=== PATIENT | female | born 1985 | race Caucasian/White ===

== ENCOUNTER 2023-08-10 22:44 | Emergency (ER) | payer MEDICAID, OTHER ==
[~2023-08-10] VITALS: Ht 172.7 cm; Wt 125.0 kg
[2023-08-11 00:16] VITALS: BP 116/71; PULSE 106; RESP 18; TEMP 99.1; O2SAT 96
== END 2023-08-11 02:25 | disposition home or self-care (01) ==
LOC: ER 22:44 → EDBD 22:44 → ER 08-11 02:25
DX: F10.129 Alcohol abuse with intoxication, unspecified (principal); E66.01 Morbid (severe) obesity due to excess calories; Z68.41 Body mass index [BMI] 40.0-44.9, adult; Y90.0 Blood alcohol level of less than 20 mg/100 ml

== ENCOUNTER 2024-10-30 02:13 | Inpatient (IN) | payer MEDICAID ==
[~2024-10-30] VITALS: Ht 167.6 cm; Wt 129.1 kg
--- NOTE | 2024-10-30 02:36 | ED.PDOC ---
HPI Comments HPI: 39-year-old female with multiple vague complaints brought in by ambulance from home for evaluation of nonspecific midsternal chest pressure nonradiating without any alleviating or precipitating factors. Onset of symptoms happened yesterday. Patient also when asked she stated that she has been having nausea and vomiting and diarrhea vomit is food content and diarrhea is yellow in color. Denies associated abdominal pain. Patient has been drinking alcohol the day prior. Patient states he feels dehydrated. Initial Vitals BP:153/103 HR: 96 RR: 20 O2: 99% Temp: Past Medical History: Anemia, anxiety, alcohol abuse Past Surgical History: Gastric bypass Social History: (+) ETOH, (-)smoking, and drug use. Medications: Zoloft, hydroxyzine HPI: Poor Historian. 39-year-old female with multiple vague complaints brought in by ambulance from home for evaluation of nonspecific midsternal chest pressure nonradiating without any alleviating or precipitating factors. Onset of symptoms happened yesterday. Patient also when asked she stated that she has been having nausea and vomiting and diarrhea vomit is food content and diarrhea is yellow in color. Denies associated abdominal pain. Patient has been drinking alcohol the day prior. Patient states he feels dehydrated. REVIEW OF SYSTEMS: CONSTITUTIONAL: Denies acute: fever, diaphoresis, chills, HEAD: Denies acute: headache, photophobia Eyes: Denies acute: Double vision, vision loss, eye pain, eye discharge. EARS: Denies acute: tinnitus, hearing loss, ear discharge, ear pain, THROAT: Denies acute: sore throat, swelling, difficulty swallowing , pain with swallowing, change in voice. NECK: Denies acute: neck pain, neck swelling, stiff neck. HEART: Denies acute : chest pain, palpitations, LUNGS: Denies acute: SOB, wheezing, cough, hemoptysis ABDOMEN: Denies acute: abdominal pain, melena , hematemesis, hematochezia SKIN: Denies acute: rash, redness, lesions, itchiness. EXTREMITIES: Denies acute: calf pain, numbness, tingling, weakness, denies pain in extremity. Denies acute: Low back pain. Neuro: Denies acute: focal neurological deficit, motor or sensory focal neurological deficit, tremors, seizure like activity, confusion, , change in mental status, loss of bowel or bladder function, cauda equina like symptoms. : Denies acute: dysuria, hematuria, flank pain, increase in urinary frequency. PSYCH: Denies acute: hallucination, suicidal ideation, homicidal ideation. FEMALE: Denies acute: abnormal vaginal bleeding, foul odor, unusual discharge. PHYSICAL EXAM: General: ----mild----acute distress, awake and alert. Head: normocephalic, atraumatic. Neck: supple, trachea is midline, no swelling. Throat: Normal phonation. Eyes:, no erythema, no purulent discharge, no proptosis, no icterus. Heart: regular rate, regular rhythm, no significant murmur appreciated. Lungs: no apparent respiratory distress, Able to speak in full sentences. No wheezing, no rhonchi, no crackles. No stridors Clear to auscultation bilaterally. Abdomen: non tender to palpation, non distended, soft, no guarding, no rebound, + bowel sounds. Neuro: Awake, Alert, oriented to name, self, situation, follows commands GCS=15. Speech is normal. Skin: no petechia, no purpura, no cyanosis, non-pale, not jaundice. Lower extremities: --no - Pitting edema no deformity, no focal swelling, no calf TTP. Makes eye contact. moves all four extremities. Face: no apparent facial droop. ED COURSE: DISCLAIMER: This medical document was created using an electronic medical record system with voice recognition software and computerized dictation system. Although this document has been carefully reviewed, there might still be some phonetic and typographical errors. Occasional wrong-word or "sound-alike" substitutions may have occurred due to the inherent limitations of voice recognition software. These areas are purely typographical due to imperfections of the software programs and do not reflect any compromise in the patient's medical care. Please read the chart carefully and recognize, using context, where these substitutions have occurred. 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, Allergies Allergies: Coded Allergies: NO KNOWN ALLERGIES (Unverified , 08/10/23) Home Meds Active Scripts Cephalexin Monohydrate (Cephalexin) 500 Mg Cap, 1 CAP PO TID for 5 Days, #15 CAP Prov:JIGNESH HEBERT MD 11/03/24 Reported Medications Sertraline Hcl (Sertraline Hcl) 100 Mg Tab, 1 TAB PO DAILY, #90 TAB 1 Refill 10/30/24 Hydroxyzine Hcl (Hydroxyzine Hcl) 50 Mg Tab, 50 MG PO for 30 Days, MG 10/30/24 Information Source: Patient Mode of Arrival: EMS Past Medical History PAST MEDICAL HISTORY: Anemia, Anxiety Surgical History (Other): Gastric bypass PICKING SUPERVISOR History: No Pertinent PICKING SUPERVISOR History Family History Family History: Reviewed,noncontributory to illness Social History Smoker: Non-Smoker Alcohol: Occasionally Drugs: Denies Drug Use Lives In: Home Was a procedure done? Was a procedure done?: No CP Differential Dx Differential Diagnosis: Angina, Anxiety / Panic Attack Differential Diagnosis: Angina, Chest Wall Pain, Costochondritis, Esophageal reflux/spasm, Gastritis, Myocardial Infarction, Pneumonia X-Ray, Labs, Meds, VS Vital Signs Date Time Temp Pulse Resp B/P (MAP) Pulse Ox O2 Delivery O2 Flow Rate FiO2 10/30/24 08:15 97 18 100 Room Air* 0 21 10/30/24 08:07 97.9 111 18 167/86 (113) 98 97.9 10/30/24 05:29 110 18 100 Room Air* 0 21 10/30/24 04:44 97.9 110 18 128/109 (115) 100 97.9 10/30/24 03:22 111 10/30/24 02:16 98 10/30/24 02:13 98.4 96 20 153/103 100 98.4 Lab Test 10/30/24 07:51 10/30/24 06:50 10/30/24 03:33 10/30/24 02:33 Range/Units Lactic Acid Level 1.6 2.8 *H 0.4-2.0 mmol/L Troponin I High Sensitivity 11 12 8 </=34 ng/L White Blood Count 8.7 4.4-10.8 10^3/uL Red Blood Count 5.59 H 4.0-5.20 10^6/uL Hemoglobin 11.5 L 12.2-16.2 g/dL Hematocrit 35.3 L 36.0-46.0 % Mean Corpuscular Volume 63.2 L 80.0-100.0 fL Mean Corpuscular Hemoglobin 20.6 L 28.0-32.0 pg Mean Corpuscular Hemoglobin Concent 32.5 32.0-36.0 g/dL Red Cell Distribution Width 31.1 H 11.8-14.3 % Platelet Count 147 140-450 10^3/uL Mean Platelet Volume 9.8 6.9-10.8 fL Neutrophils (%) (Auto) 81.6 H 37.0-80.0 % Lymphocytes (%) (Auto) 8.4 L 10.0-50.0 % Monocytes (%) (Auto) 9.4 0.0-12.0 % Eosinophils (%) (Auto) 0.1 0.0-7.0 % Basophils (%) (Auto) 0.5 0.0-2.0 % Neutrophils # (Auto) 7.1 1.6-8.6 10 ^3/uL Lymphocytes # (Auto) 0.7 0.4-5.4 10 ^3/uL Monocytes # (Auto) 0.8 0-1.3 10 ^3/uL Eosinophils # (Auto) 0 0-0.8 10 ^3/uL Basophils # (Auto) 0 0-0.2 10 ^3/uL Nucleated Red Blood Cells 0.3 % Platelet Estimate Adequate Hypochromasia (manual) Moderate Anisocytosis (manual) Moderate Microcytosis Moderate Stomatocytes Many Sodium Level 135 L 136-145 mmol/L Potassium Level 3.0 L 3.5-5.1 mmol/L Chloride Level 97 L 98-107 mmol/L Carbon Dioxide Level 23 20-31 mmol/L Anion Gap 15 5-15 Blood Urea Nitrogen 9 9-23 mg/dL Creatinine 0.62 0.550-1.02 mg/dL Glomerular Filtration Rate Calc 115 >90 mL/min BUN/Creatinine Ratio 14.5 10.0-20.0 Serum Glucose 134 H 74-106 mg/dL Calcium Level 7.9 L 8.7-10.4 mg/dL Magnesium Level 1.6 1.6-2.6 mg/dL Total Bilirubin 1.9 H 0.2-1.0 mg/dL Aspartate Amino Transferase (AST) 206 H 13-40 U/L Alanine Aminotransferase (ALT) 145 H 7-40 U/L Alkaline Phosphatase 210 H 46-116 U/L Total Protein 6.7 5.7-8.2 g/dL Albumin 3.6 3.2-4.8 g/dL Lipase 170 H 12-53 U/L Plasma/Serum Blood Alcohol < 3.0 <10 mg/dL Hepatitis A IgM Antibody Negative Hepatitis B Surface Antigen Negative Negative Hepatitis B Core IgM Antibody Negative Negative Hepatitis C Antibody Negative Negative [facility] [id number] [facility] [address] Ph: [phone] DIAGNOSTIC IMAGING Diagnostic Imaging Report : [id number] Signed PATIENT: DAVID OSMAN ACCT: [id number] UNIT: [id number] : 1985 LOC: ER ROOM / BED: / AGE / SEX: 39 / F ADM STATUS: REG ER SERVICE 2 ORDERING PHYSICIAN: GISELA RODRIGUEZ DO PROCEDURE(s): CXRP - CHEST PORTABLE REASON: cp ORDER NUMBER(s): [id number], ACCESSION NUMBER(s): [id number] CHEST RADIOGRAPH Indication: cp Technique: Single frontal view of the chest was obtained COMPARISON: None FINDINGS: Lines and Tubes: None Lungs: Clear Pleura: No effusion. No pneumothorax. Cardiomediastinal contours: Unremarkable Bones: Unremarkable IMPRESSION: 1. No acute disease. ATED BY: BASIL SANDHU MD DICTATED DATE/TIME: 10/30/24317 SIGNED BY: BASIL SANDHU MD SIGNED DATE/TIME: 10/30/24317 CC: Time of 1ST Reevaluation: 02:32 Reevaluation 1ST: Unchanged Patient Education/Counseling: Diagnosis, Treatment Family Education/Counseling: No Family Present Comments MDM: patient presented with the above HPI.---multiple vague complaints GI symptoms---workup was initiated. patient was found with the above mentioned diagnosis. the following medications were ordered: please refer to order lists of meds and tests obtained by myself Dr. Rodriguez. Patient ED course and VS have been stabilized. Patient has been reassessed in the ED and remained in a stable condition. Pertinent incidental findings were discussed with the patient and/or family. Patient/family voices understanding and is agreeable with plan. Patient has been observed in the ED adequate length of time to insure improvement/stability. Escalation of care considered: Consideration of escalation to observation or admission Patient was ADMITTED to the medicine team for further evaluation and treatment of their presentation. All the reports of any imaging studies that were ordered by myself were reviewed by myself. SEPSIS Sepsis Screen Physician Orders Electrocardigram (10/30/24 05:20) Fabrication And Layout Craftsman (10/30/24 ) Chest Portable (10/30/24 02:23) LIVER (10/30/24 07:59) Allergies (10/30/24 07:59) Ondansetron Hcl (Zofran) (10/30/24 08:00) Docusate Sodium Capsule (Colace Capsule) (10/30/24 08:00) Enoxaparin Sodium (Lovenox) (10/30/24 10:00) Condition: Fair (10/30/24 07:59) BRP (10/30/24 07:59) Morphine Sulfate Injection (10/30/24 08:00) Sequential Compression Device (10/30/24 ) Etoh Withdrawal Assessment (10/30/24 07:59) Vital Signs Date Time Temp Pulse Resp B/P (MAP) Pulse Ox O2 Delivery O2 Flow Rate FiO2 10/30/24 08:15 97 18 100 Room Air* 0 21 10/30/24 08:07 97.9 111 18 167/86 (113) 98 97.9 10/30/24 05:29 110 18 100 Room Air* 0 21 10/30/24 04:44 97.9 110 18 128/109 (115) 100 97.9 10/30/24 03:22 111 10/30/24 02:16 98 10/30/24 02:13 98.4 96 20 153/103 100 98.4 Laboratory Tests Test 10/30/24 02:33 10/30/24 07:51 Lactic Acid Level 2.8 mmol/L (0.4-2.0) *H 1.6 mmol/L (0.4-2.0) White Blood Count 8.7 10^3/uL (4.4-10.8) Departure 1 Departure Time of Disposition: 03:27 Impression: Primary Impression: Tachycardia Additional Impressions: Alcohol abuse Chest pain Nausea vomiting and diarrhea Hypokalemia Elevated LFTs Elevated lipase Disposition: ADMITTED INPATIENT Admit to: Tele Condition: Guarded e-Prescriptions Cephalexin Monohydrate (Cephalexin) 500 Mg Cap 1 CAP PO TID for 5 Days, #15 CAP Prov: JIGNESH HEBERT MD 11/03/24 Discharged With: Self Critical Care Note Critical Care Time?: Yes (45 min-critical care time only) Stability Stability form required: No Heart Score Heart Score: Heart Score Response (Comments) Value History Slightly Suspicious 0 EKG Normal 0 Age <45 0 Risk Factors No known risk factors 0 Troponin Normal limit 0 Total 0 I personally scribed for GISELA RODRIGUEZ DO ([email or web address]) on 10/30/24 at 02:36. Electronically submitted by Reza Rodas ([email or web address]). I personally scribed for GISELA RODRIGUEZ DO ([email or web address]) on 10/30/24 at 03:09. Electronically submitted by Reza Rodas ([email or web address]). I personally scribed for GISELA RODRIGUEZ DO ([email or web address]) on 10/30/24 at 04:34. Electronically submitted by Reza Rodas ([email or web address]). I personally scribed for GISELA RODRIGUEZ DO ([email or web address]) on 10/30/24 at 05:18. Electronically submitted by Reza Rodas ([email or web address]). GISELA RODRIGUEZ DO Oct 30, 2024 02:36
--- NOTE | 2024-10-30 03:06 | ECG ---
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
[2024-10-30 03:09] LABS: Hemoglobin 11.5 g/dL (12.2-16.2)
[2024-10-30 03:10] LABS: Hematocrit 35.3 % (36.0-46.0); Mean Corpuscular Hemoglobin 20.6 pg (28.0-32.0); Mean Corpuscular Volume 63.2 fL (80.0-100.0); Nucleated Red Blood Cells % 0.3 %
--- NOTE | 2024-10-30 03:20 | DVH ---
CHEST RADIOGRAPH Indication: cp Technique: Single frontal view of the chest was obtained COMPARISON: None FINDINGS: Lines and Tubes: None Lungs: Clear Pleura: No effusion. No pneumothorax. Cardiomediastinal contours: Unremarkable Bones: Unremarkable IMPRESSION: 1. No acute disease.
[2024-10-30 03:25] LABS: Albumin 3.6 g/dL (3.2-4.8); Anion Gap 15 (5-15); BUN/Creatinine Ratio 14.5 (10.0-20.0); Blood Urea Nitrogen 9 mg/dL (9-23); Carbon Dioxide 23 mmol/L (20-31); Total Protein 6.7 g/dL (5.7-8.2)
[2024-10-30 03:33] LABS: Alanine Aminotransferase 145 U/L (7-40); Alkaline Phosphatase 210 U/L (46-116); Bilirubin, Total 1.9 mg/dL (0.2-1.0); Calcium 7.9 mg/dL (8.7-10.4); Chloride 97 mmol/L (98-107); Glucose 134 mg/dL (74-106); Magnesium 1.6 mg/dL (1.6-2.6); Potassium 3.0 mmol/L (3.5-5.1); Sodium 135 mmol/L (136-145)
[2024-10-30 03:44] LABS: Lipase 170 U/L (12-53)
--- NOTE | 2024-10-30 03:46 | ECG ---
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
[2024-10-30 03:48] LABS: Lactic Acid w/Reflex 2.8 mmol/L (0.4-2.0)
[2024-10-30] MEDS: SODIUM CHLORIDE 0.9% 1,000 ML IV ONE (04:09)
[2024-10-30] MEDS: POTASSIUM CHL 20 Meq TABLET PO ONE (04:09)
[2024-10-30] MEDS: ONDANSETRON HCL 4 MG/2 ML VIAL IV ONE (04:09)
[2024-10-30 04:58] LABS: Anisocytosis Moderate
[2024-10-30 04:59] LABS: Stomatocytes Many
[2024-10-30 05:29] VITALS: PULSE 110; RESP 18; O2SAT 100
--- NOTE | 2024-10-30 07:59 | DVHHP2 ---
History of Present Illness Reason for Visit: chest pain nvd History of Present Illness 39-year-old female past medical history anemia anxiety alcohol abuse last drink was two days ago gastritis gastric bypass surgery chief complaint patient states that she could not breathe comes in with shortness of the breath by paramedics she states she has been dealing with this for the last two days she said two days before she had drink large amount of alcohol she also admits to falling two days prior and injury to her left outer thigh she had showed provider she has a bruising to her leg she also complains of vomiting for two days straight not able to keep anything down she denies any blood in her vomiting she denies any black stool she did state she had some diarrhea she states she is not able to eat she denies any tearing sensation in her chest abdomen when evaluating patient's labs and imaging from ED potassium was low at 3. 0 so potassium was repleted Zofran normal saline was given CBC was unremarkable sodium was 135 lactate was 2.8 glucose was 134 total bili was 1.9 AST was 206 ALT was 145 alkaline phosphatase 210 lipase was elevated at 170 troponin x3 was negative chest x-ray was unremarkable alcohol level was negative with these findings we will admit patient for further workup and care Past Medical History See HPI above Past Surgical History See HPI above Family History Reviewed, non-contributory to the management of this case. Past Social History Patient does drink last drink was two days ago denies drug or smoking Review of Systems Constitutional: No: Fever, Chills, Sweats, Weakness, Malaise, Other Eyes: No: Pain, Vision change, Conjunctivae inflammation, Eyelid inflammation, Other, Redness ENT: No: Ear pain, Ear discharge, Nose pain, Nose discharge, Nose congestion, Mouth pain, Mouth swelling, Throat pain, Throat swelling, Other Respiratory: No: Cough, Dry, Shortness of breath, SOB with excertion, Wheezing, Hemoptysis, Pleuritic Pain, Sputum, Wheezing, Other Cardiovascular: Chest Pain; No: Palpitations, Orthopnea, Paroxysmal Noc. Dyspnea, Edema, Lt Headedness, Other Gastrointestinal: No: Nausea, Vomiting, Abdominal Pain, Diarrhea, Constipation, Melena, Hematochezia, Other Genitourinary: No Dysuria, No Frequency, No Incontinence, No Hematuria, No Retention, No Other Musculoskeletal: No: other, neck pain, shoulder pain, arm pain, back pain, hand pain, leg pain, foot pain Skin: No: Rash, Lesions, Jaundice, Bruising, Other Neurological: Other (mild tremors); No: Weakness, Numbness, Incoordination, Change in speech, Confusion, Seizures Allergies: Coded Allergies: NO KNOWN ALLERGIES (Unverified , 08/10/23) Exam Vital Signs Vital Signs Date Time Temp Pulse Resp B/P (MAP) Pulse Ox O2 Delivery O2 Flow Rate FiO2 10/30/24 05:29 110 18 100 Room Air* 0 21 10/30/24 04:44 97.9 128/109 (115) 97.9 General Appearance: Oriented X3, No acute distress HEENT: Atraumatic, PERRLA, EOMI, Mucous membr. moist/pink Respiratory: Clear to auscultation, Normal air movement Cardiovascular: Regular rate, Normal S1, Normal S2, No murmurs Abdominal: Normal bowel sounds, Soft, No tenderness, No hepatospenomegaly, No masses Extremities: No cyanosis, No edema, Normal pulses, Other (left upper medial thigh ) Skin: No rashes, No breakdown, No significant lesion Neuro: Normal speech, Normal tone, Sensation intact, Other (neuro mild tremors/left outer thigh with bruising compartments soft neurovascular intact) Labs/Xrays Chest x-ray unremarkable I reviewed labs, imaging CT scan abdomen pelvis, EKG and all diagnostic studies on this patient from ED records and the medical chart Labs Test 10/30/24 06:50 10/30/24 02:33 Range/Units Troponin I High Sensitivity 11 </=34 ng/L White Blood Count 8.7 4.4-10.8 10^3/uL Red Blood Count 5.59 H 4.0-5.20 10^6/uL Hemoglobin 11.5 L 12.2-16.2 g/dL Hematocrit 35.3 L 36.0-46.0 % Mean Corpuscular Volume 63.2 L 80.0-100.0 fL Mean Corpuscular Hemoglobin 20.6 L 28.0-32.0 pg Mean Corpuscular Hemoglobin Concent 32.5 32.0-36.0 g/dL Red Cell Distribution Width 31.1 H 11.8-14.3 % Platelet Count 147 140-450 10^3/uL Mean Platelet Volume 9.8 6.9-10.8 fL Neutrophils (%) (Auto) 81.6 H 37.0-80.0 % Lymphocytes (%) (Auto) 8.4 L 10.0-50.0 % Monocytes (%) (Auto) 9.4 0.0-12.0 % Eosinophils (%) (Auto) 0.1 0.0-7.0 % Basophils (%) (Auto) 0.5 0.0-2.0 % Neutrophils # (Auto) 7.1 1.6-8.6 10 ^3/uL Lymphocytes # (Auto) 0.7 0.4-5.4 10 ^3/uL Monocytes # (Auto) 0.8 0-1.3 10 ^3/uL Eosinophils # (Auto) 0 0-0.8 10 ^3/uL Basophils # (Auto) 0 0-0.2 10 ^3/uL Nucleated Red Blood Cells 0.3 % Platelet Estimate Adequate Hypochromasia (manual) Moderate Anisocytosis (manual) Moderate Microcytosis Moderate Stomatocytes Many Sodium Level 135 L 136-145 mmol/L Potassium Level 3.0 L 3.5-5.1 mmol/L Chloride Level 97 L 98-107 mmol/L Carbon Dioxide Level 23 20-31 mmol/L Anion Gap 15 5-15 Blood Urea Nitrogen 9 9-23 mg/dL Creatinine 0.62 0.550-1.02 mg/dL Glomerular Filtration Rate Calc 115 >90 mL/min BUN/Creatinine Ratio 14.5 10.0-20.0 Serum Glucose 134 H 74-106 mg/dL Lactic Acid Level 2.8 *H 0.4-2.0 mmol/L Calcium Level 7.9 L 8.7-10.4 mg/dL Magnesium Level 1.6 1.6-2.6 mg/dL Total Bilirubin 1.9 H 0.2-1.0 mg/dL Aspartate Amino Transferase (AST) 206 H 13-40 U/L Alanine Aminotransferase (ALT) 145 H 7-40 U/L Alkaline Phosphatase 210 H 46-116 U/L Total Protein 6.7 5.7-8.2 g/dL Albumin 3.6 3.2-4.8 g/dL Lipase 170 H 12-53 U/L Plasma/Serum Blood Alcohol < 3.0 <10 mg/dL SEPSIS Sepsis Screen Date sepsis recognized/suspect: Oct 30, 2024 Time Sepsis recognized/suspect: 0213 Recent Procedure: No On Antibiotic Therapy: No Respiratory Rate >20: No Heart Rate >90: No Temp<36 C (96.8 F) or >38.3 C: No SBP <90 or MAP <65 mmHG: No New Acute Mental Status Change: No Is the patient on CPAP, BIPAP,: No Physician Orders Electrocardigram (10/30/24 05:20) Central Supply Technician Supervisor (10/30/24 ) Drug Screen (10/30/24 02:23) Chest Portable (10/30/24 02:23) Vital Signs Date Time Temp Pulse Resp B/P (MAP) Pulse Ox O2 Delivery O2 Flow Rate FiO2 10/30/24 05:29 110 18 100 Room Air* 0 21 10/30/24 04:44 97.9 110 18 128/109 (115) 100 97.9 10/30/24 03:22 111 10/30/24 02:16 98 10/30/24 02:13 98.4 96 20 153/103 100 98.4 Laboratory Tests Test 10/30/24 02:33 Lactic Acid Level 2.8 mmol/L (0.4-2.0) *H White Blood Count 8.7 10^3/uL (4.4-10.8) Medications Medications Dose Ordered Sig/Anna Route Start Time Stop Time Status Last Admin Dose Admin Ondansetron HCl 8 mg ONCE ONCE IV 10/30/24 02:45 10/30/24 02:46 DC 10/30/24 04:09 8 MG Potassium Chloride 60 meq ONCE ONCE PO 10/30/24 03:45 10/30/24 03:46 DC 10/30/24 04:09 60 MEQ Sodium Chloride 1,000 ml @ 1,000 mls/hr Q1H ONCE IV 10/30/24 02:45 10/30/24 03:44 DC 10/30/24 04:09 1,000 MLS/HR Assessment/Plan Assessment/Plan acute pancreatitis lipase [address] scan abd pelvis fu results IV fluids N.p.o. Ordered morphine as needed for pain consider GI consult follow-up recs ordered US of abdomen ordered lipase for am ordered triglycerides acute chest pain trop negative x3 ekg no stemi ddimer negative acute lactic acidosis could be from dehydration with nvd ordered ivf for now fu lactic in am acute nvd ordered stool cdiff ordered zofran acute hypokalemia repleted k ordered mag and phos fu results acute elevation in t bili and transaminitis likely from etoh abuse us ordered ordered hepaitis panel avoid liver toxic drugs etoh level negative Acute left upper thigh bruising Order x-ray of femur follow up results Fall precautions acute on chronic etoh use etoh level negative enc abstience sw for resources fen/ppx npo ivf protonix scd dispo admit to medicine Plan discussed with: Patient Date of Service: Oct 30, 2024 Billing Provider: JOVITA PANTOJA DNP Common Visit Codes: [id number] INP/OBS CARE (HIGH) JOVITA PANTOJA DNP Oct 30, 2024 07:59
[2024-10-30] MEDS ORDERED: DOCUSATE SOD 100 MG CAP PO PRN (08:00)
[2024-10-30 08:15] VITALS: PULSE 97; RESP 18; O2SAT 100
--- NOTE | 2024-10-30 09:06 | DVH ---
INDICATION: eval for acute transaminitis and tbili TECHNIQUE: Multiple real-time sonographic images were obtained of the right upper quadrant. COMPARISON: None FINDINGS: The liver demonstrates increased echotexture without focal mass lesions. The liver measure s 21.3 cm. There is no intrahepatic or extrahepatic ductal dilatation. The common duct measures 0.4 cm. Post cholecystectomy The right kidney measures 11.7 cm. The right kidney is normal in contour, size, and shape. The echoge nicity is normal. There is no hydronephrosis. The pancreas is not well visualized due to overlying bowel gas. IMPRESSION: Hepatic steatosis and hepatomegaly.
[2024-10-30 09:32] LABS: Potassium 3.7 mmol/L (3.5-5.1)
[2024-10-30 09:38] LABS: Magnesium 1.7 mg/dL (1.6-2.6); Triglycerides 119.0 mg/dL (< 150)
[2024-10-30] MEDS ORDERED: NITROGLYCERIN 0.4 MG SL TAB SL PRN (09:45)
[2024-10-30 10:32] LABS: Lipase 178.0 U/L (12-53)
[2024-10-30 10:48] LABS: Triglycerides 95.0 mg/dL (< 150)
[2024-10-30 10:49] LABS: Magnesium 1.8 mg/dL (1.6-2.6)
[2024-10-30 10:52] LABS: Potassium 3.5 mmol/L (3.5-5.1)
[2024-10-30 11:06] LABS: Hepatitis B Surface Antigen Negative (Negative); Hepatitis C Antibody Negative (Negative)
[2024-10-30 11:08] LABS: Lipase 178.0 U/L (12-53)
[2024-10-30] MEDS: SODIUM CHLORIDE 0.9% 1,000 ML IV SCH (12:47)
[2024-10-30] MEDS: ONDANSETRON HCL 4 MG/2 ML VIAL IV PRN (12:49)
[2024-10-30] MEDS: ENOXAPARIN SOD 40 MG/0.4 ML SYRINGE SC SCH (12:49)
--- NOTE | 2024-10-30 16:46 | DVH ---
EXAM: XY L FEMUR XRAY INDICATION: 39 years old, Female; eval for fx. TECHNIQUE: 2 views of the left femur COMPARISON: None FINDINGS/IMPRESSION: No radiographic evidence of an acute osseous abnormality. There is no acute fracture, osseous malalig nment, or aggressive focal osseous lesion. There is no radiographically apparent joint space narrowin ortiz
[2024-10-30 17:53] VITALS: BP 152/99; PULSE 83; RESP 20; TEMP 98.1; O2SAT 96
[2024-10-30] MEDS ORDERED: SERT-160 PO (19:02)
[2024-10-30] MEDS ORDERED: HYDR50TA69 PO (19:02)
[2024-10-30 20:00] VITALS: PULSE 78; PULSE 82; RESP 17; O2SAT 100
[2024-10-30 21:00] VITALS: BP 136/95; PULSE 78; RESP 17; TEMP 97.1; O2SAT 100
[2024-10-30] MEDS: MORPHINE SULFATE INJ 2 MG/ml SYRG IV PRN (23:24)
[2024-10-31] VITALS (9 sets, daily range): BP systolic 127–147; BP diastolic 90–103; PULSE 78–108; RESP 17–19; TEMP 97.1–98.6; O2SAT 94–100
[2024-10-31 08:21] LABS: Albumin 3.4 g/dL (3.2-4.8); Anion Gap 13 (5-15); BUN/Creatinine Ratio 14.3 (10.0-20.0); Bilirubin, Total 0.8 mg/dL (0.2-1.0); Carbon Dioxide 22 mmol/L (20-31); Glucose 91 mg/dL (74-106); Sodium 142 mmol/L (136-145); Total Protein 6.1 g/dL (5.7-8.2)
[2024-10-31 08:22] LABS: Nucleated Red Blood Cells % 0.2 %
[2024-10-31 08:23] LABS: Hematocrit 33.6 % (36.0-46.0); Hemoglobin 10.6 g/dL (12.2-16.2); Mean Corpuscular Hemoglobin 20.7 pg (28.0-32.0); Mean Corpuscular Volume 65.9 fL (80.0-100.0)
[2024-10-31 08:28] LABS: Alanine Aminotransferase 98 U/L (7-40); Alkaline Phosphatase 167 U/L (46-116); Blood Urea Nitrogen 9 mg/dL (9-23); Calcium 7.9 mg/dL (8.7-10.4); Chloride 107 mmol/L (98-107); Potassium 3.3 mmol/L (3.5-5.1)
[2024-10-31 08:58] LABS: Anisocytosis Moderate
[2024-10-31 08:59] LABS: Stomatocytes Few
[2024-10-31] MEDS: SERTRALINE HCL 50 MG TAB PO ONE (15:00)
[2024-10-31] MEDS: PANTOPRAZOLE 40 MG TAB PO ONE (16:00)
--- NOTE | 2024-10-31 18:05 | DVHPN2 ---
Subjective Patient is here for substernal chest pain also has acute alcoholic intoxication. Patient has stated that she had three mixed drinks. Changes from previous H/P or p: No Changes Eyes: No Pain, No Vision change, No Conjunctivae inflammation, No Eyelid inflammation, No Other, No Redness ENT: No Ear pain, No Ear discharge, No Nose pain, No Nose discharge, No Nose congestion, No Mouth pain, No Mouth swelling, No Throat pain, No Throat swelling, No Other Cardiovascular: Chest Pain; No Palpitations, No Orthopnea, No Paroxysmal Noc. Dyspnea, No Edema, No Lt Headedness, No Other Respiratory: No Cough, No Dry, No Shortness of breath, No SOB with excertion, No Wheezing, No Hemoptysis, No Pleuritic Pain, No Sputum, No Other Gastrointestinal: No Nausea, No Vomiting, No Abdominal Pain, No Diarrhea, No Constipation, No Melena, No Hematochezia, No Other Genitourinary: No Dysuria, No Frequency, No Incontinence, No Hematuria, No Retention, No Other Musculoskeletal: No other, No neck pain, No shoulder pain, No arm pain, No back pain, No hand pain, No leg pain, No foot pain Skin: No Rash, No Lesions, No Jaundice, No Bruising, No Other Objective Vitals Vital Signs Date Time Temp Pulse Resp B/P (MAP) Pulse Ox O2 Delivery O2 Flow Rate FiO2 10/31/24 16:50 98.1 88 19 140/97 (111) 100 98.1 10/31/24 08:00 Room Air* 0 21 Intake/Output Intake and Output 10/31/24 07:00 Intake Total 400 ml Balance 400 ml Intake Oral 0 ml IV Total 400 ml # Voids 5 # Bowel Movements 3 Medications Current Medications Medications Dose Ordered Sig/Anna Route Start Time Stop Time Status Last Admin Dose Admin Sodium Chloride 1,000 ml @ 100 mls/hr Q10H IV 10/30/24 08:00 10/31/24 09:25 100 MLS/HR Ondansetron HCl 4 mg Q4HP PRN IV 10/30/24 08:00 10/31/24 09:13 4 MG Docusate Sodium 100 mg BIDPRN PRN PO 10/30/24 08:00 Enoxaparin Sodium 40 mg DAILY SC 10/30/24 10:00 10/30/24 12:49 40 MG Morphine Sulfate 2 mg Q4HPRN PRN IV 10/30/24 08:00 10/31/24 09:15 2 MG Nitroglycerin 0.4 mg Q5MINP PRN SL 10/30/24 09:45 Sertraline HCl 100 mg DAILY PO 11/01/24 10:00 Laboratory Results Laboratory Tests 10/31/24 07:54 Chemistry Test 10/31/24 07:54 Albumin 3.4 g/dL (3.2-4.8) Calcium Level 7.9 mg/dL (8.7-10.4) L Total Protein 6.1 g/dL (5.7-8.2) LFT Test 10/31/24 07:54 Alanine Aminotransferase (ALT) 98 U/L (7-40) H Alkaline Phosphatase 167 U/L (46-116) H Aspartate Amino Transferase (AST) 106 U/L (13-40) H Total Bilirubin 0.8 mg/dL (0.2-1.0) Assessment/Plan Assessment/Plan 69-year-old female with a known history of morbid obesity classIII, presented to the hospital with a nausea and vomiting abdominal pain and diarrhea found to have 1. Intractable nausea and vomiting with the abdominal pain suspect acute pancreatitis 2. Substernal chest pain likely nonspecific, no evidence of acute [place] 3. Diarrhea rule out C diff 4. Acute alcoholic intoxication, watch for alcohol withdrawal syndrome 5. Morbid obesity classIII 6. Lactic acidosis 7. Transaminitis with a hepatic steatosis 8. Left lateral thigh bruising -watch for alcohol withdrawal syndrome, check stool for C diff, IV hydration Plan discussed with: Patient My Orders Orders - JIGENSH HEBERT MD Procedure Category Date Status Time Sertraline Hcl PHA 11/01/24 In Process (Zoloft) 10:00 Hydroxyzine Oral PHA 10/31/24 In Process (Vistaril Oral) 22:00 Regular Diet DIET 10/31/24 Transmitted Dinner Date of Service: Oct 31, 2024 Billing Provider: JIGNESH HEBERT MD Common Visit Codes: [id number] INP/OBS CARE(MOD) JIGNESH HEBERT MD Oct 31, 2024 18:05
[2024-10-31] MEDS: hydrOXYzine 25 MG TAB or CAP PO ONE ×2 (18:31→21:27)
[2024-11-01] VITALS (8 sets, daily range): BP systolic 127–156; BP diastolic 54–103; PULSE 78–112; RESP 16–22; TEMP 98–98.6; O2SAT 94–100
[2024-11-01] MEDS: SERTRALINE HCL 50 MG TAB PO SCH (08:52)
--- NOTE | 2024-11-01 18:18 | DVHPN2 ---
Subjective Patient is here for substernal chest pain also has acute alcoholic intoxication. Patient has stated that she had three mixed drinks. Changes from previous H/P or p: No Changes Eyes: No Pain, No Vision change, No Conjunctivae inflammation, No Eyelid inflammation, No Other, No Redness ENT: No Ear pain, No Ear discharge, No Nose pain, No Nose discharge, No Nose congestion, No Mouth pain, No Mouth swelling, No Throat pain, No Throat swelling, No Other Cardiovascular: Chest Pain; No Palpitations, No Orthopnea, No Paroxysmal Noc. Dyspnea, No Edema, No Lt Headedness, No Other Respiratory: No Cough, No Dry, No Shortness of breath, No SOB with excertion, No Wheezing, No Hemoptysis, No Pleuritic Pain, No Sputum, No Other Gastrointestinal: No Nausea, No Vomiting, No Abdominal Pain, No Diarrhea, No Constipation, No Melena, No Hematochezia, No Other Genitourinary: No Dysuria, No Frequency, No Incontinence, No Hematuria, No Retention, No Other Musculoskeletal: No other, No neck pain, No shoulder pain, No arm pain, No back pain, No hand pain, No leg pain, No foot pain Skin: No Rash, No Lesions, No Jaundice, No Bruising, No Other Objective Vitals Vital Signs Date Time Temp Pulse Resp B/P (MAP) Pulse Ox O2 Delivery O2 Flow Rate FiO2 11/01/24 17:21 98.1 111 22 156/85 (108) 96 98.1 11/01/24 08:00 Room Air* 0 21 Intake/Output Intake and Output 11/01/24 07:00 Intake Total 3040 ml Balance 3040 ml Intake Oral 1040 ml IV Total 2000 ml # Voids 7 # Bowel Movements 1 Medications Current Medications Medications Dose Ordered Sig/Anna Route Start Time Stop Time Status Last Admin Dose Admin Sodium Chloride 1,000 ml @ 100 mls/hr Q10H IV 10/30/24 08:00 11/01/24 05:53 100 MLS/HR Ondansetron HCl 4 mg Q4HP PRN IV 10/30/24 08:00 10/31/24 09:13 4 MG Docusate Sodium 100 mg BIDPRN PRN PO 10/30/24 08:00 Enoxaparin Sodium 40 mg DAILY SC 10/30/24 10:00 10/30/24 12:49 40 MG Morphine Sulfate 2 mg Q4HPRN PRN IV 10/30/24 08:00 11/01/24 14:39 2 MG Nitroglycerin 0.4 mg Q5MINP PRN SL 10/30/24 09:45 Sertraline HCl 100 mg DAILY PO 11/01/24 10:00 11/01/24 08:52 100 MG Laboratory Results Laboratory Tests 10/31/24 07:54 Assessment/Plan Assessment/Plan 69-year-old female with a known history of morbid obesity classIII, presented to the hospital with a nausea and vomiting abdominal pain and diarrhea found to have 1. Intractable nausea and vomiting with the abdominal pain suspect acute pancreatitis 2. Substernal chest pain likely nonspecific, no evidence of acute [place] 3. Diarrhea rule out C diff 4. Acute alcoholic intoxication, watch for alcohol withdrawal syndrome 5. Morbid obesity classIII 6. Lactic acidosis 7. Transaminitis with a hepatic steatosis 8. Left lateral thigh bruising -watch for alcohol withdrawal syndrome, check stool for C diff, IV hydration Plan discussed with: Patient My Orders Orders - JIGNESH HEBERT MD Procedure Category Date Status Time Urine Bacterial FELY 11/01/24 Uncollected Culture 16:07 Urinalysis LAB 11/01/24 Uncollected 16:07 Pt Request For Service PT 11/01/24 Logged 16:09 Date of Service: Nov 01, 2024 Billing Provider: JIGNESH HEBERT MD Common Visit Codes: [id number] INP/OBS CARE(MOD) JIGNESH HEBERT MD Nov 01, 2024 18:18
[2024-11-01 21:20] LABS: Benzodiazephine Screen, Urine Neg (NEGATIVE)
[2024-11-01 21:47] LABS: Barbiturate Scree,Urine Neg (NEGATIVE); Opiate Scree,Urine Pos (NEGATIVE); Phencyclidine Screen, Urine Neg (NEGATIVE)
[2024-11-01 21:48] LABS: Amphetamine Screen, Urine Neg (NEGATIVE); Cannabinoid Screen, Urine Neg (NEGATIVE); Cocaine Screen, Urine Neg (NEGATIVE)
[2024-11-02] VITALS (7 sets, daily range): BP systolic 137–148; BP diastolic 88–99; PULSE 77–95; RESP 18–20; TEMP 97.8–98.6; O2SAT 94–99
[2024-11-02 08:39] LABS: Urine Protein, UAD TRACE (Negative)
[2024-11-02 11:10] LABS: Hepatitis B Surface Antigen Negative (Negative); Hepatitis C Antibody Negative (Negative)
--- NOTE | 2024-11-02 16:43 | DVHPN2 ---
Subjective Patient is here for substernal chest pain also has acute alcoholic intoxication. Patient has stated that she had three mixed drinks. Changes from previous H/P or p: No Changes Eyes: No Pain, No Vision change, No Conjunctivae inflammation, No Eyelid inflammation, No Other, No Redness ENT: No Ear pain, No Ear discharge, No Nose pain, No Nose discharge, No Nose congestion, No Mouth pain, No Mouth swelling, No Throat pain, No Throat swelling, No Other Cardiovascular: Chest Pain; No Palpitations, No Orthopnea, No Paroxysmal Noc. Dyspnea, No Edema, No Lt Headedness, No Other Respiratory: No Cough, No Dry, No Shortness of breath, No SOB with excertion, No Wheezing, No Hemoptysis, No Pleuritic Pain, No Sputum, No Other Gastrointestinal: No Nausea, No Vomiting, No Abdominal Pain, No Diarrhea, No Constipation, No Melena, No Hematochezia, No Other Genitourinary: No Dysuria, No Frequency, No Incontinence, No Hematuria, No Retention, No Other Musculoskeletal: No other, No neck pain, No shoulder pain, No arm pain, No back pain, No hand pain, No leg pain, No foot pain Skin: No Rash, No Lesions, No Jaundice, No Bruising, No Other Objective Vitals Vital Signs Date Time Temp Pulse Resp B/P (MAP) Pulse Ox O2 Delivery O2 Flow Rate FiO2 11/02/24 13:00 98.2 84 20 142/99 (113) 98 98.2 11/02/24 08:00 Room Air* 0 21 Intake/Output Intake and Output 11/02/24 07:00 Intake Total 2150 ml Balance 2150 ml Intake Oral 150 ml IV Total 2000 ml # Voids 4 # Bowel Movements 1 Medications Current Medications Medications Dose Ordered Sig/Anna Route Start Time Stop Time Status Last Admin Dose Admin Sodium Chloride 1,000 ml @ 100 mls/hr Q10H IV 10/30/24 08:00 11/02/24 15:45 100 MLS/HR Ondansetron HCl 4 mg Q4HP PRN IV 10/30/24 08:00 11/02/24 10:29 4 MG Docusate Sodium 100 mg BIDPRN PRN PO 10/30/24 08:00 Enoxaparin Sodium 40 mg DAILY SC 10/30/24 10:00 10/30/24 12:49 40 MG Morphine Sulfate 2 mg Q4HPRN PRN IV 10/30/24 08:00 11/02/24 10:30 2 MG Nitroglycerin 0.4 mg Q5MINP PRN SL 10/30/24 09:45 Sertraline HCl 100 mg DAILY PO 11/01/24 10:00 11/02/24 08:43 100 MG Ceftriaxone Sodium 50 ml @ 100 mls/hr DAILY@09 IV 11/03/24 09:00 Laboratory Results Laboratory Tests 10/31/24 07:54 Urinalysis Test 11/01/24 20:30 Urine Color Dark-brown (Yellow) Urine Clarity Ex.turbid (Clear) Urine pH 5.5 (5.0-9.0) Urine Specific [place] 1.021 (1.001-1.035) Urine Protein Trace (Negative) H Urine Ketones Negative (Negative) Urine Blood Negative /uL (Negative) Urine Nitrite 2+ (Negative) H Urine Bilirubin Negative (Negative) Urine Urobilinogen Normal mg/dL (Negative) Urine Leukocyte Esterase 3+ /uL (Negative) Urine RBC None seen /hpf (0 - 4) Urine Microscopic WBC 155 /HPF (0-5) H Urine Squamous Epithelial Cells Few /hpf (<5) Urine Bacteria Mod /hpf (None Seen) H Urine Mucus Few (None Seen) Urine Glucose Normal mg/dL (Normal) Assessment/Plan Assessment/Plan 69-year-old female with a known history of morbid obesity classIII, presented to the hospital with a nausea and vomiting abdominal pain and diarrhea found to have 1. Intractable nausea and vomiting with the abdominal pain suspect acute pancreatitis 2. Substernal chest pain likely nonspecific, no evidence of acute [place] 3. Diarrhea rule out C diff 4. Acute alcoholic intoxication, watch for alcohol withdrawal syndrome 5. Morbid obesity classIII 6. Lactic acidosis 7. Transaminitis with a hepatic steatosis 8. Left lateral thigh bruising -watch for alcohol withdrawal syndrome, check stool for C diff, IV hydration Plan discussed with: Patient My Orders Orders - JIGNESH HEBERT MD Procedure Category Date Status Time Urine Bacterial FELY 11/01/24 In Process Culture 16:07 Ceftriaxone 1gm/50ml PHA 11/03/24 In Process (Rocephin) 09:00 * Almond [employer]anc[employer] Hand CONS 11/02/24 Transmitted Consult Date of Service: Nov 02, 2024 Billing Provider: JIGNESH HEBERT MD Common Visit Codes: [id number] INP/OBS CARE(MOD) JIGNESH HEBERT MD Nov 02, 2024 16:43
[2024-11-03] VITALS (8 sets, daily range): BP systolic 101–140; BP diastolic 61–103; PULSE 67–79; RESP 17–20; TEMP 97.8–98.1; O2SAT 97–98
[2024-11-03] MEDS ORDERED: CEPH500C PO (15:33)
--- NOTE | 2024-11-03 15:34 | DVHDS2 ---
Discharge Summary Date of Admission Oct 30, 2024 at 09:39 Date of Discharge: Nov 03, 2024 Labs/Diagnostic Data: Laboratory Results Test 11/01/24 20:30 10/31/24 07:54 10/30/24 19:47 10/30/24 09:54 Urine Color Dark-brown (Yellow) Urine Clarity Ex.turbid (Clear) Urine pH 5.5 (5.0-9.0) Urine Specific [place] 1.021 (1.001-1.035) Urine Protein Trace (Negative) Urine Ketones Negative (Negative) Urine Blood Negative /uL (Negative) Urine Nitrite 2+ (Negative) Urine Bilirubin Negative (Negative) Urine Urobilinogen Normal mg/dL (Negative) Urine Leukocyte Esterase 3+ /uL (Negative) Urine RBC None seen /hpf (0 - 4) Urine Microscopic WBC 155 /HPF (0-5) Urine Squamous Epithelial Cells Few /hpf (<5) Urine Bacteria Mod /hpf (None Seen) Urine Mucus Few (None Seen) Urine Glucose Normal mg/dL (Normal) Urine Opiates Screen Pos (NEGATIVE) Urine Fentanyl Screen Neg (NEGATIVE) Urine Barbiturates Screen Neg (NEGATIVE) Urine Phencyclidine Screen Neg (NEGATIVE) Urine Amphetamines Screen Neg (NEGATIVE) Urine Benzodiazepines Screen Neg (NEGATIVE) Urine Cocaine Screen Neg (NEGATIVE) Urine Cannabinoids Screen Neg (NEGATIVE) White Blood Count 5.2 10^3/uL (4.4-10.8) Red Blood Count 5.10 10^6/uL (4.0-5.20) Hemoglobin 10.6 g/dL (12.2-16.2) Hematocrit 33.6 % (36.0-46.0) Mean Corpuscular Volume 65.9 fL (80.0-100.0) Mean Corpuscular Hemoglobin 20.7 pg (28.0-32.0) Mean Corpuscular Hemoglobin Concent 31.4 g/dL (32.0-36.0) Red Cell Distribution Width 31.5 % (11.8-14.3) Platelet Count 77 10^3/uL (140-450) Mean Platelet Volume 9.4 fL (6.9-10.8) Neutrophils (%) (Auto) 60.6 % (37.0-80.0) Lymphocytes (%) (Auto) 25.1 % (10.0-50.0) Monocytes (%) (Auto) 9.4 % (0.0-12.0) Eosinophils (%) (Auto) 4.2 % (0.0-7.0) Basophils (%) (Auto) 0.7 % (0.0-2.0) Neutrophils # (Auto) 3.2 10 ^3/uL (1.6-8.6) Lymphocytes # (Auto) 1.3 10 ^3/uL (0.4-5.4) Monocytes # (Auto) 0.5 10 ^3/uL (0-1.3) Eosinophils # (Auto) 0.2 10 ^3/uL (0-0.8) Basophils # (Auto) 0 10 ^3/uL (0-0.2) Nucleated Red Blood Cells 0.2 % Platelet Estimate Decreased Hypochromasia (manual) Moderate Anisocytosis (manual) Moderate Microcytosis Moderate Target Cells Few Stomatocytes Few Sodium Level 142 mmol/L (136-145) Potassium Level 3.3 mmol/L (3.5-5.1) Chloride Level 107 mmol/L (98-107) Carbon Dioxide Level 22 mmol/L (20-31) Anion Gap 13 (5-15) Blood Urea Nitrogen 9 mg/dL (9-23) Creatinine 0.63 mg/dL (0.550-1.02) Glomerular Filtration Rate Calc 115 mL/min (>90) BUN/Creatinine Ratio 14.3 (10.0-20.0) Serum Glucose 91 mg/dL (74-106) Calcium Level 7.9 mg/dL (8.7-10.4) Total Bilirubin 0.8 mg/dL (0.2-1.0) Aspartate Amino Transferase (AST) 106 U/L (13-40) Alanine Aminotransferase (ALT) 98 U/L (7-40) Alkaline Phosphatase 167 U/L (46-116) Total Protein 6.1 g/dL (5.7-8.2) Albumin 3.4 g/dL (3.2-4.8) Hepatitis B Surface Antigen Negative (Negative) Hepatitis C Antibody Negative (Negative) Lactic Acid Level 1.8 mmol/L (0.4-2.0) Phosphorus Level 1.7 mg/dL (2.4-5.1) Magnesium Level 1.8 mg/dL (1.6-2.6) Triglycerides Level 95 mg/dL (< 150) Lipase 178 U/L (12-53) Test 10/30/24 06:50 10/30/24 02:33 Troponin I High Sensitivity 11 ng/L (</=34) Plasma/Serum Blood Alcohol < 3.0 mg/dL (<10) Hepatitis A IgM Antibody Negative Hepatitis B Core IgM Antibody Negative (Negative) Other Laboratory Tests 10/31/24 07:54 Brief Hx & Hospital Course: 69-year-old female with a known history of morbid obesity class III, presented to the hospital with a nausea and vomiting abdominal pain suspected acute pancreatitis. Patient was initially kept NPO then started on liquid diet. P patient does have known history of chronic alcoholism. Patient was given IV hydration found to have some UTI which was treated with the IV antibiotics. Patient's substernal chest pain likely nonspecific. Patient did have lactic acidosis with a transaminitis. Patient has requested front wheel walker which will be arranged home health home safety evaluation will be arranged patient is being discharged under stable condition on p.o. antibiotics. Condition at Discharge: Stable Final Diagnosis/Problems List 69-year-old female with a known history of morbid obesity classIII, presented to the hospital with a nausea and vomiting abdominal pain and diarrhea found to have 1. Intractable nausea and vomiting with the abdominal pain suspect acute pancreatitis 2. Substernal chest pain likely nonspecific, no evidence of acute [place] 3. Diarrhea rule out C diff 4. Acute alcoholic intoxication, watch for alcohol withdrawal syndrome 5. Morbid obesity classIII 6. Lactic acidosis 7. Transaminitis with a hepatic steatosis 8. Left lateral thigh bruising Discharge Disposition: Home with Health Services SNF Discharge Will this Physician continue t: No Discharge Instruct/Medications New Medications: Cephalexin Monohydrate (Cephalexin) 500 Mg Cap 1 CAP PO TID for 5 Days, #15 CAP Continued Medications: Hydroxyzine Hcl (Hydroxyzine Hcl) 50 Mg Tab 50 MG PO for 30 Days, MG Sertraline Hcl (Sertraline Hcl) 100 Mg Tab 1 TAB PO DAILY, #90 TAB 1 Refill Scheduled Cephalexin Monohydrate (Cephalexin), 1 CAP PO TID Sertraline Hcl (Sertraline Hcl), 1 TAB PO DAILY, (Reported) Miscellaneous Medications Hydroxyzine Hcl (Hydroxyzine Hcl), 50 MG PO, (Reported) Discharge Statement: "Patient was advised to return to the ER or call 911 if any headaches, dizziness, shortness of breath, chest pain, abdominal pain, bleeding, fevers, or worsening of medical condition. Patient was counseled about treatment plan, medications, possible side effects, patientverbalized understanding. All questions were answered to the best of my ability. This discharge took greater then 30 minutes in planning, reviewing documentation, counseling the patient, and discussing with other team members." ASSESSMENT ASSESSMENT Assessment Date of Service: Nov 03, 2024 Billing Provider: JIGNESH HEBERT MD Common Visit Codes: [id number] DISCH DAY >30min JIGNESH HEBERT MD Nov 03, 2024 15:34
[2024-11-04 01:00] VITALS: BP 107/71; PULSE 81; RESP 19; TEMP 98.2; O2SAT 97
[2024-11-04 05:00] VITALS: BP 145/87; PULSE 70; RESP 20; TEMP 98; O2SAT 98
[2024-11-04 08:00] VITALS: PULSE 57
[2024-11-04 09:00] VITALS: BP 154/105; PULSE 74; RESP 18; TEMP 98.1; O2SAT 98
[2024-11-04 13:00] VITALS: BP 135/74; PULSE 72; RESP 16; TEMP 98.3; O2SAT 96
[2024-11-04 13:40] VITALS: BP 128/79; PULSE 83; RESP 18; TEMP 98.1; O2SAT 98
--- NOTE | 2024-11-04 15:08 | DVHPN2 ---
Reviewed: H&P Changes from previous H/P or p: No Changes General: Per HPI Eyes: No Pain, No Vision change, No Conjunctivae inflammation, No Eyelid inflammation, No Other, No Redness ENT: No Ear pain, No Ear discharge, No Nose pain, No Nose discharge, No Nose congestion, No Mouth pain, No Mouth swelling, No Throat pain, No Throat swelling, No Other Cardiovascular: Chest Pain; No Palpitations, No Orthopnea, No Paroxysmal Noc. Dyspnea, No Edema, No Lt Headedness, No Other Respiratory: No Cough, No Dry, No Shortness of breath, No SOB with excertion, No Wheezing, No Hemoptysis, No Pleuritic Pain, No Sputum, No Other Gastrointestinal: No Nausea, No Vomiting, No Abdominal Pain, No Diarrhea, No Constipation, No Melena, No Hematochezia, No Other Genitourinary: No Dysuria, No Frequency, No Incontinence, No Hematuria, No Retention, No Other Musculoskeletal: No other, No neck pain, No shoulder pain, No arm pain, No back pain, No hand pain, No leg pain, No foot pain Skin: No Rash, No Lesions, No Jaundice, No Bruising, No Other Objective Vitals Vital Signs Date Time Temp Pulse Resp B/P (MAP) Pulse Ox O2 Delivery O2 Flow Rate FiO2 11/04/24 13:40 98.1 83 18 98 11/04/24 13:38 130/87 11/04/24 08:00 Room Air* 0 21 Intake/Output Intake and Output 11/04/24 07:00 Intake Total 2650 ml Balance 2650 ml Intake Oral 1400 ml IV Total 1250 ml # Voids 7 # Bowel Movements 4 Exam GEN: Healthy appearing, well-developed, NAD. HEENT: NC/AT; MMM. CV: RRR, no m/r/g. LUNGS: CTAB, no w/r/c. ABD: Soft, NT/ND, NBS, no masses or organomegaly. EXT: skin Warm, well perfused. no rashes. No clubbing, cyanosis, or edema. NEURO: Ambulating with no limitations. No focal deficits. Medications Current Medications Medications Dose Ordered Sig/Anna Route Start Time Stop Time Status Last Admin Dose Admin Ondansetron HCl 4 mg Q4HP PRN IV 10/30/24 08:00 11/04/24 08:45 4 MG Docusate Sodium 100 mg BIDPRN PRN PO 10/30/24 08:00 Enoxaparin Sodium 40 mg DAILY SC 10/30/24 10:00 11/04/24 10:37 40 MG Morphine Sulfate 2 mg Q4HPRN PRN IV 10/30/24 08:00 11/04/24 13:08 2 MG Nitroglycerin 0.4 mg Q5MINP PRN SL 10/30/24 09:45 Sertraline HCl 100 mg DAILY PO 11/01/24 10:00 11/04/24 10:38 100 MG Ceftriaxone Sodium 50 ml @ 100 mls/hr DAILY@09 IV 11/03/24 09:00 11/04/24 08:45 100 MLS/HR Laboratory Results Laboratory Tests 10/31/24 07:54 Urinalysis Test 11/01/24 20:30 Urine Color Dark-brown (Yellow) Urine Clarity Ex.turbid (Clear) Urine pH 5.5 (5.0-9.0) Urine Specific [place] 1.021 (1.001-1.035) Urine Protein Trace (Negative) H Urine Ketones Negative (Negative) Urine Blood Negative /uL (Negative) Urine Nitrite 2+ (Negative) H Urine Bilirubin Negative (Negative) Urine Urobilinogen Normal mg/dL (Negative) Urine Leukocyte Esterase 3+ /uL (Negative) Urine RBC None seen /hpf (0 - 4) Urine Microscopic WBC 155 /HPF (0-5) H Urine Squamous Epithelial Cells Few /hpf (<5) Urine Bacteria Mod /hpf (None Seen) H Urine Mucus Few (None Seen) Urine Glucose Normal mg/dL (Normal) Microbiology Microbiology Date/Time Source Procedure Growth Status 11/01/24 20:30 Urine - Midstream Clean Catch Urine Culture - Final Complete Labs and/or images reviewed: Labs reviewed by me, Image(s) reviewed by me Assessment/Plan Assessment/Plan 69-year-old female with a known history of morbid obesity classIII, presented to the hospital with a nausea and vomiting abdominal pain and diarrhea found to have 1. Intractable nausea and vomiting with the abdominal pain suspect acute pancreatitis 2. Substernal chest pain likely nonspecific, no evidence of acute [place] 3. Diarrhea rule out C diff 4. Acute alcoholic intoxication, watch for alcohol withdrawal syndrome 5. Morbid obesity classIII 6. Lactic acidosis 7. Transaminitis with a hepatic steatosis 8. Left lateral thigh bruising 11/04 - patient is waiting for front wheel walker and home health is pending. As soon as patient is set up with home health patient will be ready for discharge. Discharge was entered yesterday. Patient otherwise remains stable for discharge pending social factors Plan discussed with: Patient Date of Service: Nov 04, 2024 Billing Provider: RITA PEDRAZA MD Common Visit Codes: [id number] INP/OBS CARE(MOD) RITA PEDRAZA MD Nov 04, 2024 15:08
== END 2024-11-04 14:40 | disposition home health service (06) | DRG 282 ==
LOC: ER 02:13 → EEVIPCON 02:13 → EDBD 02:13 → OVERFLOW 09:39 → TELE-WESTW 17:42
PROVIDERS: ADMIT Student in an Organized Health Care Education/Training Program; ATTEND Student in an Organized Health Care Education/Training Program
DX: K85.90 Acute pancreatitis without necrosis or infection, unspecified (principal); A04.72 Enterocolitis due to Clostridium difficile, not specified as recurrent; E87.21 Acute metabolic acidosis; E66.01 Morbid (severe) obesity due to excess calories; E87.6 Hypokalemia; E86.0 Dehydration; F41.9 Anxiety disorder, unspecified; R79.89 Other specified abnormal findings of blood chemistry; S70.12XA Contusion of left thigh, initial encounter; X58.XXXA Exposure to other specified factors, initial encounter; F10.229 Alcohol dependence with intoxication, unspecified; K76.0 Fatty (change of) liver, not elsewhere classified; R74.01 Elevation of levels of liver transaminase levels; N39.0 Urinary tract infection, site not specified; R07.89 Other chest pain; F10.239 Alcohol dependence with withdrawal, unspecified; Y90.9 Presence of alcohol in blood, level not specified; Z98.84 Bariatric surgery status; Y93.89 Activity, other specified; Y92.89 Other specified places as the place of occurrence of the external cause; Y99.8 Other external cause status; Z68.42 Body mass index [BMI] 45.0-49.9, adult
CPT/HCPCS: 36415; 71045; 76705; 80053; 80074; 80307; 80320; 81001; 83605; 83690; 83735; 84100; 84132; 84478; 84484; 85025; 86803; 87086; 87340; 93005; 96361; 96374; 97110; 97116; 97163; G0378; J2405

== ENCOUNTER 2024-12-31 22:03 | Emergency (ER) | payer MEDICAID ==
[~2024-12-31] VITALS: Ht 170.2 cm; Wt 117.7 kg
[~2024-12-31 22:03] MED LIST: CEPH500C PO; HYDR50TA69 PO; SERT-160 PO
[2024-12-31 23:16] LABS: Hematocrit 37.6 % (36.0-46.0); Hemoglobin 12.2 g/dL (12.2-16.2); Mean Corpuscular Hemoglobin 23.1 pg (28.0-32.0); Mean Corpuscular Volume 71.3 fL (80.0-100.0); Nucleated Red Blood Cells % 0.2 %
--- NOTE | 2024-12-31 23:17 | DVH ---
Exam: CT CT AB PEL WO CON-NO ORAL OR IV History: abd pain n/v Comparison Study: US LIVER on DOS: 10/30/24, US PELVIS COMPLETE on DOS: 05/01/23 TECHNIQUE: Multidetector CT of the abdomen and pelvis was performed from lung bases to pubic symphysis. Imaging was performed without IV contrast. Axial, coronal, and sagittal multiplanar reformats were obtained from the axial data set by the technologist. RADIATION DOSE: CTDI vol 25.1 mGy. DLP 1458.5 mGy.cm Findings: Limited evaluation of the solid organs in the absence of IV contrast. Lungs: The lung bases are clear. Liver: Diffuse hypoattenuation of the liver suggestive of hepatic steatosis. Hepatomegaly. Spleen: Unremarkable. Pancreas: Unremarkable. Gallbladder: Prior cholecystectomy. Adrenals: Unremarkable Kidneys: Unremarkable. Pelvic Viscera: 3.2 cm right adnexal cyst. Vasculature: Unremarkable. Retroperitoneum: Unremarkable. Bowel: No bowel obstruction. No CT evidence of appendicitis. Prior gastric bypass. Musculoskeletal: Unremarkable. Soft tissues: Unremarkable Impression: 1. No acute abdominopelvic abnormality. 2. Incidental findings as detailed.
[2024-12-31 23:35] LABS: Albumin 4.0 g/dL (3.2-4.8); Anion Gap 14 (5-15); BUN/Creatinine Ratio 14.5 (10.0-20.0); Bilirubin, Total 0.8 mg/dL (0.2-1.0); Blood Urea Nitrogen 10 mg/dL (9-23); Calcium 8.8 mg/dL (8.7-10.4); Carbon Dioxide 22 mmol/L (20-31); Chloride 102 mmol/L (98-107); Sodium 138 mmol/L (136-145); Total Protein 7.3 g/dL (5.7-8.2)
[2024-12-31 23:41] LABS: Alanine Aminotransferase 98 U/L (7-40); Alkaline Phosphatase 124 U/L (46-116); Glucose 107 mg/dL (74-106); Lipase 71 U/L (12-53); Potassium 3.4 mmol/L (3.5-5.1)
--- NOTE | 2024-12-31 23:46 | ED.PDOC ---
GI ASSESSMENT HPI Comments OSMAN: HPI: Poor Historian. --female presents to the emergency department for evaluation of upper abdominal pain for two days constant nonradiating. Patient states his pain is her current usually due to previous episodes of alcohol abuse and pancreatitis. She was admitted to the hospital for this in the past. Patient has been having some mild nausea and vomiting nonbilious nonbloody. Denies any other acute symptoms except some maybe some slight dizziness. pain is Worse with alcohol and certain fatty food. she admits to drinking 2 days ago. Past Medical History: Sudden, alcohol abuse, ovarian cysts. Past Surgical History: denies any. REVIEW OF SYSTEMS: CONSTITUTIONAL: Denies acute: fever, diaphoresis, chills, HEAD: Denies acute: headache, photophobia Eyes: Denies acute: Double vision, vision loss, eye pain, eye discharge. EARS: Denies acute: tinnitus, hearing loss, ear discharge, ear pain, THROAT: Denies acute: sore throat, swelling, difficulty swallowing , pain with swallowing, change in voice. NECK: Denies acute: neck pain, neck swelling, stiff neck. HEART: Denies acute : chest pain, palpitations, LUNGS: Denies acute: SOB, wheezing, cough, hemoptysis ABDOMEN: Denies acute: diarrhea, melena , hematemesis, hematochezia SKIN: Denies acute: rash, redness, lesions, itchiness. EXTREMITIES: Denies acute: calf pain, numbness, tingling, weakness, denies pain in extremity. Denies acute: Low back pain. Neuro: Denies acute: focal neurological deficit, motor or sensory focal neurological deficit, tremors, seizure like activity, confusion, change in mental status, loss of bowel or bladder function, cauda equina like symptoms. : Denies acute: dysuria, hematuria, flank pain, increase in urinary frequency. PSYCH: Denies acute: hallucination, suicidal ideation, homicidal ideation. FEMALE: Denies acute: abnormal vaginal bleeding, foul odor, unusual discharge. Currently menstrual cycle PHYSICAL EXAM: General: ----mild----acute distress, awake and alert. Head: normocephalic, atraumatic. No raccoon's eyes, no delong sign. Neck: supple, trachea is midline, no swelling. Throat: Normal phonation. Eyes:, no erythema, no purulent discharge, no proptosis, no icterus. Heart: regular tachy, no significant murmur appreciated. Lungs: no apparent respiratory distress, Able to speak in full sentences. No wheezing, no rhonchi, no crackles. No stridors Clear to auscultation bilaterally. Abdomen: epigastric/ruq tender to palpation, non distended, soft, no guarding, no rebound, + bowel sounds. obese. specifically no lower quadrant TTP. Neuro: Awake, Alert, oriented to name, self, situation, follows commands GCS=15. Speech is normal. Skin: no petechia, no purpura, no cyanosis, non-pale, not jaundice. Lower extremities: --no - Pitting edema no deformity, no focal swelling, no calf TTP. Makes eye contact. moves all four extremities. Face: no apparent facial droop. ED COURSE: DISCLAIMER: This medical document was created using an electronic medical record system with voice recognition software and computerized dictation system. Although this document has been carefully reviewed, there might still be some phonetic and typographical errors. Occasional wrong-word or "sound-alike" substitutions may have occurred due to the inherent limitations of voice recognition software. These areas are purely typographical due to imperfections of the software programs and do not reflect any compromise in the patient's medical care. Please read the chart carefully and recognize, using context, where these substitutions have occurred. Chief Complaint: Abdominal Pain Time Seen by MD: 22:05 Reviewed Notes: Nurses Notes, Allergies Allergies: Coded Allergies: NO KNOWN ALLERGIES (Unverified , 08/10/23) Home Meds Active Scripts Cephalexin Monohydrate (Cephalexin) 500 Mg Cap, 1 CAP PO TID for 5 Days, #15 CAP Prov:JIGNESH HEBERT MD 11/03/24 Reported Medications Sertraline Hcl (Sertraline Hcl) 100 Mg Tab, 1 TAB PO DAILY, #90 TAB 1 Refill 10/30/24 Hydroxyzine Hcl (Hydroxyzine Hcl) 50 Mg Tab, 50 MG PO for 30 Days, MG 10/30/24 Information Source: Patient Mode of Arrival: Ambulatory Past Medical History PAST MEDICAL HISTORY: Anemia, Anxiety 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 Was a procedure done?: No GI differential Dx Differential Diagnosis: Other (DDX include Diverticulitis, colitis, gastroenteritis, acute abdomen, SBO, enteritis, constipation, volvulus, appendicitis, Gallbladder disease, choledocolithiasis, ascending cholangitis, pancreatitis, intraAbdominal mass/neoplasm, hepatitis, UTI, pylonephritis, k idney stone, aneurysm, dissection, Inflammatory bowel disease, gastroparesis, ischemic bowel,,,,,,Food poisoning, bacterial/parasitic/viral etiology, trauma, diabetes DKA,ovarian torsion, ovarian cyst/mass, tubo-ovarian abscess, , ectopic , PID, STD.) X-Ray, Labs, Meds, VS Vital Signs Date Time Temp Pulse Resp B/P (MAP) Pulse Ox O2 Delivery O2 Flow Rate FiO2 01/01/25 02:45 97.6 108 18 139/99 (112) 95 97.6 01/01/25 01:51 98.5 121 20 132/94 (107) 99 98.5 12/31/24 22:04 99.0 129 20 159/102 97 99.0 Lab Test 01/01/25 01:55 12/31/24 23:28 12/31/24 23:08 Range/Units Urine Opiates Screen Neg NEGATIVE Urine Fentanyl Screen Neg NEGATIVE Urine Barbiturates Screen Neg NEGATIVE Urine Phencyclidine Screen Neg NEGATIVE Urine Amphetamines Screen Neg NEGATIVE Urine Benzodiazepines Screen Pos NEGATIVE Urine Cocaine Screen Neg NEGATIVE Urine Cannabinoids Screen Neg NEGATIVE Urine Color Dark-red Yellow Urine Clarity Ex.turbid Clear Urine pH 6.0 5.0-9.0 Urine Specific [place] 1.039 H 1.001-1.035 Urine Protein 3+ H Negative Urine Ketones 1+ H Negative Urine Blood 3+ H Negative /uL Urine Nitrite Negative Negative Urine Bilirubin Negative Negative Urine Urobilinogen Normal Negative mg/dL Urine Leukocyte Esterase 2+ Negative /uL Urine RBC None seen 0 - 4 /hpf Urine Microscopic WBC < 1 0-5 /HPF Urine Squamous Epithelial Cells None seen <5 /hpf Urine Bacteria None seen None Seen /hpf Urine Glucose Normal Normal mg/dL Urine Test Negative Negative White Blood Count 6.8 4.4-10.8 10^3/uL Red Blood Count 5.27 H 4.0-5.20 10^6/uL Hemoglobin 12.2 12.2-16.2 g/dL Hematocrit 37.6 36.0-46.0 % Mean Corpuscular Volume 71.3 L 80.0-100.0 fL Mean Corpuscular Hemoglobin 23.1 L 28.0-32.0 pg Mean Corpuscular Hemoglobin Concent 32.4 32.0-36.0 g/dL Red Cell Distribution Width 24.9 H 11.8-14.3 % Platelet Count 132 L 140-450 10^3/uL Mean Platelet Volume 9.2 6.9-10.8 fL Neutrophils (%) (Auto) 68.9 37.0-80.0 % Lymphocytes (%) (Auto) 22.2 10.0-50.0 % Monocytes (%) (Auto) 6.6 0.0-12.0 % Eosinophils (%) (Auto) 1.5 0.0-7.0 % Basophils (%) (Auto) 0.8 0.0-2.0 % Neutrophils # (Auto) 4.7 1.6-8.6 10 ^3/uL Lymphocytes # (Auto) 1.5 0.4-5.4 10 ^3/uL Monocytes # (Auto) 0.4 0-1.3 10 ^3/uL Eosinophils # (Auto) 0.1 0-0.8 10 ^3/uL Basophils # (Auto) 0.1 0-0.2 10 ^3/uL Nucleated Red Blood Cells 0.2 % Sodium Level 138 136-145 mmol/L Potassium Level 3.4 L 3.5-5.1 mmol/L Chloride Level 102 98-107 mmol/L Carbon Dioxide Level 22 20-31 mmol/L Anion Gap 14 5-15 Blood Urea Nitrogen 10 9-23 mg/dL Creatinine 0.69 0.550-1.02 mg/dL Glomerular Filtration Rate Calc 112 >90 mL/min BUN/Creatinine Ratio 14.5 10.0-20.0 Serum Glucose 107 H 74-106 mg/dL Lactic Acid Level 1.2 0.4-2.0 mmol/L Calcium Level 8.8 8.7-10.4 mg/dL Magnesium Level 1.9 1.6-2.6 mg/dL Total Bilirubin 0.8 0.2-1.0 mg/dL Aspartate Amino Transferase (AST) 132 H 13-40 U/L Alanine Aminotransferase (ALT) 98 H 7-40 U/L Alkaline Phosphatase 124 H 46-116 U/L Total Protein 7.3 5.7-8.2 g/dL Albumin 4.0 3.2-4.8 g/dL Lipase 71 H 12-53 U/L Current Medications Medications (Trade) Dose Ordered Sig/Anna Route Start Time Stop Time Status Last Admin Sodium Chloride 1,000 ml @ 1,000 mls/hr Q1H ONCE IV 12/31/24 22:30 12/31/24 23:29 DC 01/01/25 00:04 Ondansetron HCl (Zofran) 8 mg ONCE ONCE IV 12/31/24 22:30 12/31/24 22:31 DC 01/01/25 00:04 Lorazepam (Ativan Inj) 1 mg ONCE ONCE IV 01/01/25 00:15 01/01/25 00:16 DC 01/01/25 01:46 Thiamine HCl 100 mg ONCE ONCE PO 01/01/25 00:15 01/01/25 00:16 DC 01/01/25 01:45 [place] [address] Ph: [phone] DIAGNOSTIC IMAGING Diagnostic Imaging Report : [id number] Signed PATIENT: DAVID OSMAN ACCT: [id number] UNIT: [id number] : 1985 LOC: ER ROOM / BED: / AGE / SEX: 39 / F ADM STATUS: REG ER SERVICE 20 ORDERING PHYSICIAN: GISELA RODRIGUEZ DO PROCEDURE(s): PELUS - PELVIC REASON: abd pain n/v ORDER NUMBER(s): [id number], ACCESSION NUMBER(s): [id number] Procedure: US PELVIC 12/31/2024 10:21 PM Indication: abd pain n/v Comparison: US PELVIS COMPLETE on DOS: 05/01/23 Technique: Real-time grayscale and color images were obtained transabdominal. Patient refused transvaginal examination. FINDINGS: UTERUS: Anteverted, measuring 9.3 x 5.6 x 6.1 cm in length. Heterogeneous appearance of the uterus with a 2.0 cm hypoechoic region. ENDOMETRIAL STRIPE: 9 mm in thickness. Homogenous echotexture. No fluid in the endometrial canal. RIGHT OVARY: 4.2 x 3.1 x 3.6 cm in length. Preserved vascular flow. 2.8 cm right adnexal cyst. LEFT OVARY: Not visualized. CUL-DE-SAC: No significant fluid noted. OTHER: None. IMPRESSION: 1. Limited transabdominal evaluation. 2.8 cm right adnexal cyst. The left ovary was not visualized. 2. Heterogeneous appearance of the uterus with a 2.0 cm hypoechoic region. Consider nonemergent pelvic MRI in further assessment. ATED BY: ANIKET MCMAHAN MD DICTATED DATE/TIME: 12/31/242356 SIGNED BY: ANIKET MCMAHAN MD SIGNED DATE/TIME: 12/31/242356 CC: Time of 1ST Reevaluation: 03:15 Reevaluation 1ST: Improved Patient Education/Counseling: Diagnosis, Treatment Family Education/Counseling: Other Comments MDM: patient presented with the above HPI.---abdominal pain--workup was initiated. patient was found with the above mentioned diagnosis. the following medications were ordered: please refer to order lists of meds and tests obtained by myself Dr. Rodriguez. Patient ED course and VS have been stabilized. Patient has been reassessed in the ED and remained in a stable condition. Pertinent incidental findings were discussed with the patient and/or family. Patient/family voices understanding and is agreeable with plan. Patient has been observed in the ED adequate length of time to insure improvement/stability. Escalation of care considered: Consideration of escalation to observation or admission Patient is slightly tachycardic I suspect this to be due to alcohol abuse. The care of this patient was signed out to my colleague Dr. Garsia. Patient will be reassessed and vital signs will be checked. I anticipate the patient to be discharged home All the reports of any imaging studies that were ordered by myself were reviewed by myself. Departure 1 Departure Time of Disposition: 02:53 Impression: Primary Impression: Epigastric pain Additional Impressions: Alcohol abuse Elevated LFTs Hepatomegaly Uterine fibroid Thrombocytopenia Disposition: 30 STILL A PATIENT Condition: Stable Additional Instructions: Additional instructions: Please read all instructions provided in this packet carefully. You MUST follow-up with your primary care/family doctor in 1 to 2 days. If you are unable to see your primary care/family doctor, please return to our emergency room for re-assessment and re-evaluation in 1 to 2 days. Return to the emergency room here in our facility or to the nearest ER [facility] if your symptoms change or worsen. CONSULTATIONS: you MUST Follow-up for consultation as soon as possible with: [facility] doctor and gastroenterology in 1-2 days. Please call for appointment. You MUST call the consultants office yourself to make an appointment. You may need to arrange that through your insurance and/or your primary/family doctor. If you are unable to see the human resource consultant in 1 to 2 days, you must return to our emergency room (or any other ER of your choice) for re-assessment and re-evaluation. Adequate fluid hydration. Although you have been discharged from the Emergency Department, this does not mean that you have a "clean bill of health". No definitive diagnosis for your symptoms has been made today. It is possible that you are in the process of developing a serious illness. This is why you must return to the ED without fail if any new or worsening symptoms develop. seek help regarding your alcohol use. Avoid Fatty greasy spicy food. Avoid caffeinated products. Avoid NSAIDs. Below is a copy of your radiological report for follow up: [place] [address] Ph: [phone] DIAGNOSTIC IMAGING Diagnostic Imaging Report : [id number] Signed PATIENT: DAVID OSMAN ACCT: [id number] UNIT: [id number] : 1985 LOC: ER ROOM / BED: / AGE / SEX: 39 / F ADM STATUS: REG ER SERVICE 20 ORDERING PHYSICIAN: GISELA RODRIGUEZ DO PROCEDURE(s): PELUS - PELVIC REASON: abd pain n/v ORDER NUMBER(s): [id number], ACCESSION NUMBER(s): [id number] Procedure: US PELVIC 12/31/2024 10:21 PM Indication: abd pain n/v Comparison: US PELVIS COMPLETE on DOS: 05/01/23 Technique: Real-time grayscale and color images were obtained transabdominal. Patient refused transvaginal examination. FINDINGS: UTERUS: Anteverted, measuring 9.3 x 5.6 x 6.1 cm in length. Heterogeneous appearance of the uterus with a 2.0 cm hypoechoic region. ENDOMETRIAL STRIPE: 9 mm in thickness. Homogenous echotexture. No fluid in the endometrial canal. RIGHT OVARY: 4.2 x 3.1 x 3.6 cm in length. Preserved vascular flow. 2.8 cm right adnexal cyst. LEFT OVARY: Not visualized. CUL-DE-SAC: No significant fluid noted. OTHER: None. IMPRESSION: 1. Limited transabdominal evaluation. 2.8 cm right adnexal cyst. The left ovary was not visualized. 2. Heterogeneous appearance of the uterus with a 2.0 cm hypoechoic region. Consider nonemergent pelvic MRI in further assessment. ATED BY: ANIKET MCMAHAN MD DICTATED DATE/TIME: 12/31/242356 SIGNED BY: ANIKET MCMAHAN MD SIGNED DATE/TIME: 12/31/242356 CC: [place] [address] Ph: [phone] DIAGNOSTIC IMAGING Diagnostic Imaging Report : [id number] Signed PATIENT: DAVID OSMAN ACCT: [id number] UNIT: [id number] : 1985 LOC: ER ROOM / BED: / AGE / SEX: 39 / F ADM STATUS: REG ER SERVICE 20 ORDERING PHYSICIAN: GISELA RODRIGUEZ DO PROCEDURE(s): ABPL - CT AB PEL WO CON-NO ORAL OR IV REASON: abd pain n/v ORDER NUMBER(s): [id number], ACCESSION NUMBER(s): [id number] Exam: CT CT AB PEL WO CON-NO ORAL OR IV History: abd pain n/v Comparison Study: US LIVER on DOS: 10/30/24, US PELVIS COMPLETE on DOS: 05/01/23 TECHNIQUE: Multidetector CT of the abdomen and pelvis was performed from lung bases to pubic symphysis. Imaging was performed without IV contrast. Axial, coronal, and sagittal multiplanar reformats were obtained from the axial data set by the technologist. RADIATION DOSE: CTDI vol 25.1 mGy. DLP 1458.5 mGy.cm Findings: Limited evaluation of the solid organs in the absence of IV contrast. Lungs: The lung bases are clear. Liver: Diffuse hypoattenuation of the liver suggestive of hepatic steatosis. Hepatomegaly. Spleen: Unremarkable. Pancreas: Unremarkable. Gallbladder: Prior cholecystectomy. Adrenals: Unremarkable Kidneys: Unremarkable. Pelvic Viscera: 3.2 cm right adnexal cyst. Vasculature: Unremarkable. Retroperitoneum: Unremarkable. Bowel: No bowel obstruction. No CT evidence of appendicitis. Prior gastric bypass. Musculoskeletal: Unremarkable. Soft tissues: Unremarkable Impression: 1. No acute abdominopelvic abnormality. 2. Incidental findings as detailed. ATED BY: ANIKET MCMAHAN MD DICTATED DATE/TIME: 12/31/242313 SIGNED BY: ANIKET MCMAHAN MD SIGNED DATE/TIME: 12/31/242313 CC: Discharged With: Self Critical Care Note Critical Care Time?: Yes (45 min-critical care time only) GISELA RODRIGUEZ DO Dec 31, 2024 23:46
--- NOTE | 2024-12-31 23:59 | DVH ---
Procedure: US PELVIC 12/31/2024 10:21 PM Indication: abd pain n/v Comparison: US PELVIS COMPLETE on DOS: 05/01/23 Technique: Real-time grayscale and color images were obtained transabdominal. Patient refused transvaginal examination. FINDINGS: UTERUS: Anteverted, measuring 9.3 x 5.6 x 6.1 cm in length. Heterogeneous appearance of the uterus with a 2.0 cm hypoechoic region. ENDOMETRIAL STRIPE: 9 mm in thickness. Homogenous echotexture. No fluid in the endometrial canal. RIGHT OVARY: 4.2 x 3.1 x 3.6 cm in length. Preserved vascular flow. 2.8 cm right adnexal cyst. LEFT OVARY: Not visualized. CUL-DE-SAC: No significant fluid noted. OTHER: None. IMPRESSION: 1. Limited transabdominal evaluation. 2.8 cm right adnexal cyst. The left ovary was not visualized. 2. Heterogeneous appearance of the uterus with a 2.0 cm hypoechoic region. Consider nonemergent pelvic MRI in further assessment.
[2025-01-01] MEDS: ONDANSETRON HCL 4 MG/2 ML VIAL IV ONE (00:04)
[2025-01-01] MEDS: SODIUM CHLORIDE 0.9% 1,000 ML IV ONE (00:04)
[2025-01-01 01:30] LABS: Urine Protein, UAD 3+ (Negative)
[2025-01-01] MEDS: THIAMINE HCL 100 MG TAB PO ONE (01:45)
[2025-01-01] MEDS: LORazepam 2MG/ML-1ML VIAL IV ONE (01:46)
[2025-01-01 03:00] LABS: Barbiturate Scree,Urine Neg (NEGATIVE); Benzodiazephine Screen, Urine Pos (NEGATIVE)
[2025-01-01 03:01] LABS: Amphetamine Screen, Urine Neg (NEGATIVE); Cannabinoid Screen, Urine Neg (NEGATIVE); Cocaine Screen, Urine Neg (NEGATIVE); Opiate Scree,Urine Neg (NEGATIVE); Phencyclidine Screen, Urine Neg (NEGATIVE)
[2025-01-01 04:12] VITALS: BP 112/82; RESP 20; TEMP 98.5; O2SAT 99
[2025-01-01] MEDS: LIDOCAINE VISCOUS 2% 15ML UD PO ONE (04:16)
[2025-01-01] MEDS: PANTOPRAZOLE 40 MG TAB PO ONE (04:16)
[2025-01-01] MEDS: SUCRALFATE 1 GM TAB PO ONE (04:16)
[2025-01-01 04:30] VITALS: PULSE 86
--- NOTE | 2025-01-01 04:31 | ECG ---
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
== END 2025-01-01 05:32 | disposition home or self-care (01) ==
LOC: ER 22:03
DX: D25.9 Leiomyoma of uterus, unspecified (principal); D69.6 Thrombocytopenia, unspecified; R10.13 Epigastric pain; F10.10 Alcohol abuse, uncomplicated; R79.89 Other specified abnormal findings of blood chemistry; R16.0 Hepatomegaly, not elsewhere classified; F41.9 Anxiety disorder, unspecified; Z79.899 Other long term (current) drug therapy; Z87.19 Personal history of other diseases of the digestive system; Y90.9 Presence of alcohol in blood, level not specified
CPT/HCPCS: 36415; 74176; 76856; 80053; 80307; 81001; 81025; 83605; 83690; 83735; 85025; 93005; 96361; 96374; 96375; 99285; J2060; J2405; J7030